=== PATIENT | female | born 1985 | race American Indian/Alaskan Native ===

== ENCOUNTER 2021-05-31 10:31 | Emergency (ER) | payer SELFPAY ==
[2021-05-31 11:35] VITALS: BP 117/71
--- NOTE | 2021-05-31 11:57 | Emergency Department Report ---
ED Female HPI - General Chief complaint: Vaginal Bleeding Stated complaint: BLEEDING/HEADACHES Time Seen by Provider: 05/31/21 11:44 Source: patient Mode of arrival: Ambulatory Limitations: No Limitations - History of Present Illness Initial comments: 35-year-old female who reports no Past medical history presents to the ER today with complaints of abnormal vaginal bleeding. Patient states that her last normal menstrual cycle was May 15. She states that she started bleeding again yesterday. She states that the bleeding has been heavy but she has not been passing any clots and she reports intermittent mild left-sided abdominal cramping. She denies any abnormal vaginal discharge or UTI symptoms. She is not currently on any control pills. She states that she is status post tubal ligation x11 years. She has not taken a test since the bleeding started. She is not any blood thinners, and she has no bleeding disorders and she has never had to have a blood transfusion in the past. She does not currently have an PACKER. MD Complaint: vaginal bleeding -: days(s) (1) - Related Data Previous Rx's Medication Instructions Recorded Last Taken Type Cyclobenzaprine [Flexeril] 10 mg PO Q12H PRN #20 tablet 05/24/20 Unknown Rx Naproxen 500 mg PO Q12H PRN #30 tablet 05/24/20 Unknown Rx medroxyPROGESTERone ACETATE 10 mg PO DAILY #10 tablet 05/24/20 Unknown Rx [Provera] Allergies Allergy/AdvReac Type Severity Reaction Status Date / Time No Known Allergies Allergy Unverified 05/24/20 02:39 ED Review of Systems ROS: Stated complaint: BLEEDING/HEADACHES Other details as noted in HPI Comment: All other systems reviewed and negative Constitutional: denies: chills, diaphoresis, fever, malaise, weakness Eyes: denies: eye pain, eye discharge, vision change ENT: denies: ear pain, throat pain Respiratory: denies: cough, shortness of breath, wheezing Cardiovascular: denies: chest pain, palpitations, dyspnea on exertion, edema, syncope, paroxysmal nocturnal dyspnea Endocrine: no symptoms reported Gastrointestinal: abdominal pain. denies: nausea, vomiting, diarrhea, constipation, hematemesis, melena, hematochezia Genitourinary: abnormal menses. denies: urgency, dysuria, frequency, hematuria, discharge, dyspareunia, other Musculoskeletal: denies: back pain, joint swelling, arthralgia Skin: denies: rash, lesions, change in color, change in hair/nails, pruritus Neurological: denies: headache, weakness, numbness, paresthesias, confusion, abnormal gait, vertigo Psychiatric: denies: anxiety, depression, auditory hallucinations, visual hallucinations, homicidal thoughts, suicidal thoughts Hematological/Lymphatic: denies: easy bleeding, easy bruising, swollen glands ED Past Medical Hx - Past Medical History Previous Medical History?: No - Surgical History Past Surgical History?: No - Social History Smoking Status: Never Smoker Substance Use Type: None - Medications Home Medications: Home Medications Medication Instructions Recorded Confirmed Last Taken Type Cyclobenzaprine [Flexeril] 10 mg PO Q12H PRN #20 tablet 05/24/20 Unknown Rx Naproxen 500 mg PO Q12H PRN #30 tablet 05/24/20 Unknown Rx medroxyPROGESTERone ACETATE 10 mg PO DAILY #10 tablet 05/24/20 Unknown Rx [Provera] ED Physical Exam - General Limitations: No Limitations General appearance: alert, in no apparent distress - Head Head exam: Present: atraumatic, normocephalic, normal inspection - Eye Eye exam: Present: normal appearance, PERRL, EOMI Pupils: Present: normal accommodation - ENT ENT exam: Present: normal exam, mucous membranes moist, TM's normal bilaterally - Neck Neck exam: Present: normal inspection, full ROM - Respiratory Respiratory exam: Present: normal lung sounds bilaterally. Absent: respiratory distress, wheezes, rales, rhonchi - Cardiovascular Cardiovascular Exam: Present: regular rate, normal rhythm, normal heart sounds - GI/Abdominal GI/Abdominal exam: Present: soft. Absent: distended, tenderness, guarding, rebound - Neurological Exam Neurological exam: Present: alert, oriented X3, CN II-XII intact, normal gait - Psychiatric Psychiatric exam: Present: normal affect, normal mood - Skin Skin exam: Present: intact ED Course Vital Signs 05/31/21 11:33 Temperature 98.9 F Pulse Rate 86 Respiratory 18 Rate Blood Pressure 117/71 [Right] O2 Sat by Pulse 100 Oximetry ED Medical Decision Making - Lab Data Result diagrams: 05/31/21 11:56 05/31/21 11:59 - Medical Decision Making All labs reviewed --CBC shows a normal H&H, normal platelet count and normal white count. CMP unremarkable. hCG negative. Urinalysis shows no UTI. Patient currently resting comfortably, has been observed playing on her phone denies any acute distress. She has a soft nontender abdomen. She is not ill- appearing and nontoxic, neurologically intact with a normal gait. Vital signs are stable Discussed all lab results with patient. Recommend close follow-up with [facility] for further evaluation of abnormal bleeding. Patient expressed understanding of all instructions and agree with plan. Patient stable at time of discharge. Critical care attestation.: If time is entered above; I have spent that time in minutes in the direct care of this critically ill patient, excluding procedure time. ED Disposition Clinical Impression: Abnormal vaginal bleeding Disposition: HOME / SELF CARE / HOMELESS Is pt being admited?: No Does the pt Need Aspirin: No Condition: Stable Instructions: Abnormal Uterine Bleeding, [id number] Additional Instructions: I recommend that you follow-up with the PACKER listed on your discharge instructions for further evaluation of your abnormal bleeding. You can take Tylenol and ibuprofen as needed for pain. Return to the ER if your symptoms changes or worsens in any way. Referrals: [facility] [Provider Group] - 3-5 Days [facility] [Provider Group] - 3-5 Days Time of Disposition: 13:20
[2021-05-31 12:18] LABS: Basophils % (Auto) 0.5 % (0.0-1.8); Eosinophils % (Auto) 0.8 % (0.0-4.3); Hematocrit 36.7 % (30.3-42.9); Hemoglobin 12.4 gm/dl (10.1-14.3); Lymphocytes # (Auto) 1.9 K/mm3 (1.2-5.4); Lymphocytes % (Auto) 42.8 % (13.4-35.0); Mean Corpuscular HGB Conc 34 % (30-34); Mean Corpuscular Volume 88 fl (79-97); Monocytes # (Auto) 0.5 K/mm3 (0.0-0.8); Platelet Count 195 K/mm3 (140-440); Red Cell Distribution Width 13.2 % (13.2-15.2)
[2021-05-31 12:32] LABS: Alanine Aminotransferase 12 units/L (7-56); Albumin 4.2 g/dL (3.9-5); BUN/Creatinine Ratio 19; Blood Urea Nitrogen 15 mg/dL (7-17); Calcium 9.1 mg/dL (8.4-10.2); Hemolysis Index 3
[2021-05-31 13:14] LABS: Bilirubin,Urine NEG (Negative); Blood,Urine MOD (Negative); Color,Urine Yellow (Yellow); Mucus,Urine 1+ /HPF; Protein,Urine <15 mg/dL mg/dL (Negative); Urobilinogen,Urine < 2.0 mg/dL (<2.0)
== END 2021-05-31 13:43 | disposition home or self-care (01) ==
LOC: ED 10:31
DX: N93.9 Abnormal uterine and vaginal bleeding, unspecified (principal); Z79.899 Other long term (current) drug therapy
CPT/HCPCS: 36415; 80053; 81001; 84703; 85025

== ENCOUNTER 2021-07-31 06:06 | Emergency (ER) | payer SELFPAY ==
[2021-07-31 06:22] VITALS: BP 134/86
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
== END 2021-07-31 06:56 | disposition home or self-care (01) ==
LOC: ED 06:06
DX: S50.12XA Contusion of left forearm, initial encounter (principal); S50.11XA Contusion of right forearm, initial encounter; S80.01XA Contusion of right knee, initial encounter; S80.02XA Contusion of left knee, initial encounter; F12.90 Cannabis use, unspecified, uncomplicated; Z79.899 Other long term (current) drug therapy; V87.7XXA Person injured in collision between other specified motor vehicles (traffic), initial encounter; Y93.89 Activity, other specified; Y92.488 Other paved roadways as the place of occurrence of the external cause; Y99.8 Other external cause status
CPT/HCPCS: 99282